=== PATIENT | female | born 1980 | race Caucasian/White ===

== ENCOUNTER 2020-05-24 13:53 | Outpatient (CLI) | payer BC, OTHER ==
[2020-05-24 18:17] LABS: #Lymphocytes 1.8 thou/uL (1.20-3.40); #Monocytes 1.1 thou/uL (0.11-0.59); #Neutrophils 12.4 thou/uL (1.40-6.50); %Basophils 0.3 % (0.0-1.0); %Eosinophils 0.3 % (0.0-10.0); %Lymphocytes 11.5 % (21.0-51.0); %Monocytes 7.4 % (0.0-10.0); %Neutrophils 80.5 % (42.0-75.0); Hemoglobin 13.8 g/dL (12.0-16.0); Mean Corpuscular HGB CONC 33.9 g/dL (32.0-36.0); Mean Corpuscular Hemoglobin 32.4 pg (27.0-31.0); Mean Corpuscular Volume 95.4 fL (78.0-98.0); Mean Platelet Volume 8.4 fL (7.4-10.4); Platelet Count 302 thou/uL (130-400); RBC Distribution Width 10.8 % (11.5-14.5); Red Blood Cell (RBC) Count 4.26 mill/uL (4.20-5.40); White Blood Cell (WBC) Count 15.4 thou/uL (4.8-10.8)
[2020-05-25 13:27] LABS: SARS-CoV-2 MS2 Positive; SARS-CoV-2 N Gene Negative; SARS-CoV-2 S Gene Negative; SARS-CoV-2 by NAA Not Detected (NotDetected); SARS-CoV-2 orf1ab Negative
== END 2020-05-24 13:54 | disposition home or self-care (01) ==
LOC: LABBT 13:53
PROVIDERS: ATTEND Student in an Organized Health Care Education/Training Program
DX: Z01.812 Encounter for preprocedural laboratory examination (principal); Z20.828 Contact with and (suspected) exposure to other viral communicable diseases; R10.31 Right lower quadrant pain
CPT/HCPCS: 85025; 86850; 86900; 86901; 87635; U0003

== ENCOUNTER 2020-05-25 09:56 | Day surgery (SDC) | payer BC ==
[2020-05-24 15:14] VITALS: BMI 23.6
[2020-05-25] MEDS ORDERED: CeleCOXIB 100 MG CAP ONE (11:08)
[2020-05-25] MEDS ORDERED: Famotidine/PF 20 mg/2ml Vial ONE (11:08)
[2020-05-25] MEDS ORDERED: Gabapentin 300 MG CAP ONE (11:08)
[2020-05-25 11:51] LABS: BHCG - Serum Negative (NEGATIVE); Pregs Control Background? CLEAR/WHITE (CLR/WHITE); Pregs Control Bar Appear? YES (CONTROL BAR)
[2020-05-25] MEDS ORDERED: Fentanyl 100 MCG/2 ML VIAL ONE ×2 (11:56→13:47)
[2020-05-25] MEDS ORDERED: Lidocaine 2% Jelly 5 ML TUBE ONE (11:56)
[2020-05-25] MEDS ORDERED: Midazolam HCl 2 mg/2 ml Vial ONE (11:56)
[2020-05-25] MEDS ORDERED: Scopolamine 1.5 mg/72 hour Patch ONE (13:48)
[2020-05-25] MEDS ORDERED: Ondansetron PF 4 MG/2 ML Vial ONE ×2 (13:48→13:58)
[2020-05-25] MEDS ORDERED: Lidocaine 1% w/Epinephrine 1:100K 20 ML VIAL ONE (13:51)
[2020-05-25] MEDS ORDERED: Bupivacaine PF 0.5% 30 ML VIAL ONE (13:51)
[2020-05-25] MEDS ORDERED: Ketorolac Tromethamine 30 MG/ML VIAL ONE (13:58)
[2020-05-25] MEDS ORDERED: Lidocaine 1% PF 5 ML VIAL ONE (13:58)
[2020-05-25] MEDS ORDERED: Glycopyrrolate 0.2 MG/ML 5 ML SYRINGE ONE (13:58)
[2020-05-25] MEDS ORDERED: EPHEDRINE 25 MG/5 ML SYRINGE ONE (13:58)
[2020-05-25] MEDS ORDERED: Dexamethasone 20 MG/5 ML VIAL ONE (13:58)
[2020-05-25] MEDS ORDERED: Rocuronium Bromide 10 MG/ML (10ML VIAL) ONE (13:58)
[2020-05-25] MEDS ORDERED: PROPOFOL 200 MG/20 ML VIAL ONE (13:58)
--- NOTE | 2020-05-26 13:37 | OP ---
DATE OF PROCEDURE: 05/25/2020 PREOPERATIVE DIAGNOSIS: Right lower quadrant pain. POSTOPERATIVE DIAGNOSES: Right lower quadrant pain plus right-sided ovarian torsion. PROCEDURES PERFORMED: Diagnostic laparoscopy and right salpingo-oophorectomy. SYSTEMS MANAGEMENT CONSULTANT SURGEON: None. ANESTHESIA: General endotracheal. PATHOLOGY: Right fallopian tube and ovary. ESTIMATED BLOOD LOSS: 20 mL. URINE OUTPUT: 700 mL of crystalloid. IVF: 1500 mL of crystalloid. COMPLICATIONS: None. DRAINS: None. FINDINGS: Necrotic right ovary torsed with fallopian tube x5. Upon detorsion of the ovary and fallopian tube, the ovary did not revascularize. The ovary was very hannah and mitchell appearing and upon manipulation, the ovary would shred into pieces. Surgically absent previously left ovary and fallopian tube, and normal-appearing uterus, no other pelvic abnormalities. DESCRIPTION OF PROCEDURE: The patient was taken to the operating room, where general anesthesia was obtained without difficulty. The patient was prepped and draped in a sterile fashion in dorsal lithotomy position. Varma catheter was placed in the bladder. A speculum was placed in the vagina. The anterior lip of the cervix was grasped with single-tooth tenaculum. The single-tooth [employer] manipulator was placed into the uterus, and the speculum and tenaculum were removed. Legs were placed in low lithotomy. Attention was turned to the abdomen. A mixture of 0.5% Marcaine with epinephrine and 1% lidocaine plain was infiltrated into the umbilicus and a 5 mm skin incision was made. The Veress needle was passed into the abdomen, noting higher opening pressures. The patient then had multiple prior abdominal surgeries. Therefore, decision was made to proceed with entry optically. The 5 mm trocar and camera were advanced optically into the abdomen without difficulty. Pneumoperitoneum was established and steep Trendelenburg was obtained. A left lower quadrant port was placed that was 5 mm and after infiltrating with anesthetic, this was done under direct visualization. A blunt probe was used to manipulate things and the torsion was immediately noted. The ovary was extremely enlarged and edematous, and again with manipulating the ovary just kind of fell into pieces and was easily perforated with just a small amount of pressure. A suprapubic port was then placed under direct visualization after infiltrating with anesthetic to further be able to detorse the ovary. Graspers were used to detorse the ovary and it was torsed 5 times. There was a large amount of free fluid just from edema from the torsion. This had most likely been going on for 2 weeks as the patient had been in significant pain for 2 weeks. 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 After detorsion, the pelvis was observed and the ovary was observed to see any signs of improved perfusion and revascularization with or anything consistent with persistent ovarian function even though this was difficult to identify when ovary would just shred into pieces. There was a large amount of dark old blood that was trapped within the ovary from the duration of the torsion and after approximately 15 minutes, it was felt that the ovary would not revascularize and was in fact necrotic and nonfunctional. Therefore, secondary to the patient's recurrent symptoms almost every year, decision was made to proceed with right salpingo-oophorectomy. She did not desire future fertility and therefore the utero-ovarian was cauterized with the LigaSure and incised and the meso-ovarian was followed around with cautery and incision with the LigaSure and the IP ligament was very edematous as well. The ureter was directly visible at the pelvic brim medial to the IP. The IP was cauterized multiple times with the LigaSure and incised and this completed the removal of the ovary and fallopian tube. The pelvis was then irrigated and suctioned and the pressure was dropped down and hemostasis was noted of the right salpingo-oophorectomy site. At that time, the suprapubic port was extended to accommodate an 8 mm back and the trocar was changed out to an 8 mm and the bag was placed into the abdomen, and the right fallopian tube and ovary were placed into the bag. The bag was then brought out of that 8 mm incision and the trocar was removed and this was a very large ovary and fallopian tube and the extraction of that tissue from the bag with a Ginny clamp and ring forceps was successful. After about approximately 30 minutes, the incision was extended slightly in order to accommodate more tissue coming out and once the tissue had been bagged and then completely removed, the pelvis was again observed and hemostasis was noted. There was no additional tissue that was present that was remaining behind and therefore all instruments were removed out of the abdomen and pneumoperitoneum was released. The fascia of the suprapubic port was closed with 0 Vicryl in a running fashion. The skin was closed with 4-0 Monocryl in a subcuticular fashion. Dermabond was applied. The [employer] manipulator was removed out of the uterus and hemostasis was noted of the tenaculum site. All instruments were removed out of vagina. The patient tolerated the procedure well. Sponge and needle counts were correct x2. The patient was taken to recovery in stable condition. Varma catheter was discontinued prior to leaving the operating room. The patient received Ancef 2 g prior to the procedure. Job ID: [id number]
== END 2020-05-25 18:25 | disposition home or self-care (01) ==
LOC: SDC 09:56
PROVIDERS: ATTEND Student in an Organized Health Care Education/Training Program
PROC: 0UT04ZZ Resection of Right Ovary, Percutaneous Endoscopic Approach (ICD-10-PCS; principal; 2020-05-25)
PROC: 0UT54ZZ Resection of Right Fallopian Tube, Percutaneous Endoscopic Approach (ICD-10-PCS; principal; 2020-05-25)
DX: N83.53 Torsion of ovary, ovarian pedicle and fallopian tube (principal); N83.291 Other ovarian cyst, right side; Z88.0 Allergy status to penicillin; Z90.721 Acquired absence of ovaries, unilateral; Z98.890 Other specified postprocedural states
CPT/HCPCS: 84703; 88305; J0690; J1100; J1885; J2250; J2405; J2704; J3010; S0020; S0028